=== PATIENT | female | born 1960 | race Caucasian/White ===

== ENCOUNTER 2019-07-30 03:32 | Outpatient (RCR) | payer BC, SELFPAY ==
[2019-07-23 16:06] LABS: Alanine Aminotransferase 128 U/L (4-35); Albumin Level 3.9 g/dL (3.5-5.1); Aspartate Amino Transferase 218 U/L (14-36); Bilirubin,Total 7.4 mg/dL (0.2-1.3); Blood Urea Nitrogen 13 mg/dL (7-17); Calcium 9.4 mg/dL (8.4-10.2); Carbon Dioxide 27 mmol/L (22-30); Chloride 102 mmol/L (98-107); Estimated Glomerular Filt Rate > 60; Glucose 98 mg/dL (65-105); Potassium 3.7 mmol/L (3.4-5.0); Sodium 140 mmol/L (137-145)
[2019-07-23 16:33] LABS: Alkaline Phosphatase 2064 U/L (38-126)
[2019-07-30 16:52] LABS: Alanine Aminotransferase 137 U/L (4-35); Albumin Level 3.5 g/dL (3.5-5.1); Aspartate Amino Transferase 214 U/L (14-36); Bilirubin,Total 6.9 mg/dL (0.2-1.3); Blood Urea Nitrogen 13 mg/dL (7-17); Calcium 9.4 mg/dL (8.4-10.2); Carbon Dioxide 23 mmol/L (22-30); Chloride 103 mmol/L (98-107); Estimated Glomerular Filt Rate > 60; Glucose 133 mg/dL (65-105); Potassium 3.5 mmol/L (3.4-5.0); Sodium 138 mmol/L (137-145)
[2019-07-30 17:21] LABS: Alkaline Phosphatase 1799 U/L (38-126)
== END 2019-10-21 23:59 | disposition home or self-care (01) ==
LOC: ANHLAB 03:32
PROVIDERS: PCP Family Medicine; Visit Provider Internal Medicine Medical Oncology
DX: C18.2 Malignant neoplasm of ascending colon (principal)
CPT/HCPCS: 36415; 80053

== ENCOUNTER 2020-01-29 09:34 | Emergency (ER) | payer BC, SELFPAY ==
[2020-01-29] VITALS (9 sets, daily range): BP systolic 63–107; BP diastolic 30–67; PULSE 81–105; RESP 16–30; TEMP 35.5–36.5; O2SAT 92–100
--- NOTE | ~2020-01-29 | XR_ITS ---
EXAMINATION: XR chest ET placement DATE: 01/29/2020 11:16 INDICATION: Hypotension. Endotracheal tube repositioning. TECHNIQUE: frontal view of the chest was obtained. COMPARISON: Chest radiograph dated 01/29/2020 at 10:04 AM FINDINGS: Endotracheal tube has been withdrawn with distal tip tip now in the trachea approximately 2.5 cm abov e the scooter. Left subclavian central venous port catheter with distal tip at the high right atrium. Nasogastric tube tip in proximal side port in the body of the stomach. Likely biliary stent projectin g over the right upper quadrant. Defibrillator pads project over the right chest and left upper quadr ant of the abdomen. Small lung opacity projecting over the right upper lung zone. Linear opacities project over the left midlung zone. Hazy opacity in the left lower lung zone with blunting at the left costophrenic angle c onsistent with small left pleural effusion. The cardiomediastinal silhouette is normal. IMPRESSION: 1. Endotracheal tube in acceptable position 2.5 cm above the scooter. 2. Small left pleural effusion. 3. Opacities in the right upper, left mid and lower lung zones which could represent atelectasis and/ or pneumonia. Reviewed, dictated and finalized at location [facility]. IMPRESSION: 1. Endotracheal tube in acceptable position 2.5 cm above the scooter. 2. Small left pleural effusion. 3. Opacities in the right upper, left mid and lower lung zones which could repr esent atelectasis and/or pneumonia.
--- NOTE | ~2020-01-29 | XR_ITS ---
EXAMINATION: XR chest ET placement, XR chest ET placement DATE: 01/29/2020 at 9:57 AM and 10:04 AM INDICATION: Unresponsive. Endotracheal tube placement and subsequent repositioning. TECHNIQUE: 1. Frontal view of the chest was obtained. 2. A second frontal view of the chest was obtained following endotracheal tube repositioning. COMPARISON: Chest radiograph dated 03/28/2015 FINDINGS: Endotracheal tube tip is positioned in the right mainstem bronchus approximately 2.5 cm below the lev el of the scooter on the initial radiograph. On the subsequent radiograph the tube is been withdrawn b ut is still just within the orifice of the right mainstem bronchus within a few millimeter of the car ulises. Left subclavian central venous port catheter with distal tip at the high right atrium. Nasogastr ic tube in the stomach. Defibrillator pads project over the right hemithorax and left upper quadrant. Likely biliary stent projecting over the right upper quadrant. There are airspace opacities in the right upper lung zone and in the left upper, mid and lower lung z ones. Blunting at the left costophrenic angle consistent with small left pleural effusion. No pneumot horax. Heart size is normal. IMPRESSION: 1. Endotracheal tube tip in the right mainstem bronchus, also on the second image post repositioning. Recommend withdrawal by 1.5-2 cm. 2. Opacities in the right upper and left upper, mid and lower lung zones which could represent atelec tasis, pneumonia, metastatic disease or some combination thereof. 3. Small left pleural effusion. Reviewed, dictated and finalized at location A. IMPRESSION: 1. Endotracheal tube tip in the right mainstem bronchus, also on the second bradley ge post repositioning. Recommend withdrawal by 1.5-2 cm. 2. Opacities in the right upper and left upper, mid and lower lung zones which could represent atelectasis, pneumonia, metastatic disease or some combination thereof. 3. Small left pleural effusion.
--- NOTE | ~2020-01-29 | CT_ITS ---
EXAMINATION: CT brain wo con DATE: 01/29/2020 10:22 INDICATION: Unresponsive. Intubated patient. TECHNIQUE: Computed tomography (CT) of the head was performed without intravenous contrast. The mA wa s adjusted according to patient size. Iterative reconstruction technique was employed. Exam dose: 68 1.00 mGy-cm total exam DLP. COMPARISON: None FINDINGS: The examination is limited due to patient motion and associated motion streak artifact. No intracranial mass lesion or hemorrhage or cerebrovascular accident is evident. There is evidence o f a focal left posteromedial cerebellar infarct. No midline shift or mass effect. No subdural or epidural hematoma. No skull fracture or bone destruction is detected. Included paranasal sinuses are unremarkable. No si gnificant abnormality of the mastoid air cells. NG and ET tubes. IMPRESSION: Limited examination due to motion artifact; no acute intracranial finding evident Reviewed, dictated and finalized at [facility]. Reviewed, dictated and finalized at location A.
[2020-01-29] MEDS: ETOMIDATE 20 MG/10 ML AMPUL 15 MG IV PUSH (09:40)
[2020-01-29] MEDS: SUCCINYLCHOLINE CHLORIDE 20 MG/ML 10 ML VIAL 150 MG IV PUSH (09:40)
--- NOTE | 2020-01-29 09:51 | ECG_ITS ---
Measurements Intervals [place] Rate: 100 P: 27 ID: [id number] QRS: 44 QRSD: 105 T: -30 QT: 338 QTc: 437 Interpretive Statements SINUS TACHYCARDIA BORDERLINE R WAVE PROGRESSION, ANTERIOR LEADS BORDERLINE ST-T WAVE ABNORMALITY- INF/LAT LEADS BASELINE WANDER- II, III, AVR, AVL, AVF ABNORMAL ECG Electronically Signed On 01-29-2020 10:55:54 CDT by Jaziel Watkins D.O.
[2020-01-29 09:58] LABS: Basophils Absolute Auto 0.01 K/mm3 (0.00-0.10); Basophils Percent Auto 0.1 % (0.0-1.0); Eosinophils Absolute Auto 0.01 K/mm3 (0.02-0.50); Eosinophils Percent Auto 0.1 % (1.0-6.0); Immature Granulocyte Absolute 0.16 K/mm3 (0.00-0.00); Immature Granulocyte Percent A 1.1 % (0.0-0.0); Lymphocytes Absolute Auto 1.49 K/mm3 (1.10-4.50); Lymphocytes Percent Auto 9.8 % (18.0-42.0); Mean Corpuscular HGB Conc 30.6 g/dL (32.0-36.0); Mean Corpuscular Hemoglobin 25.1 pg (27.0-31.0); Mean Corpuscular Volume 82.1 fL (78.0-102.0); Mean Platelet Volume 10.4 fl (9.2-11.8); Monocytes Absolute Auto 1.21 K/mm3 (0.10-0.90); Monocytes Percent Auto 7.9 % (2.0-11.0); Neutrophils Absolute Auto 12.4 K/mm3 (1.7-7.2); Nucleated Red Blood Cells Absolute Auto 0.04 K/mm3 (0.00-0.00); Nucleated Red Blood Cells Perc 0.3 % (0-0.0); Platelet Count Result 338 K/mm3 (150-420); Red Blood Count 1.95 M/mm3 (4.20-5.40); Red Cell Distribution Width 18.1 % (11.6-14.4); White Blood Count 15.2 K/mm3 (4.8-10.8)
--- NOTE | 2020-01-29 10:04 | ED.AMS ---
HPI - Altered Mental Status General Chief Complaint: Cardiac Arrest/CPR Stated Complaint: unresponsive Source: EMS Mode of arrival: ambulatory History of Present Illness HPI narrative: 59 y.o. with Stage 4 colon cancer, s/p bowel resection and course of chemotherapy. Seen by Dr. Becky Chin 2 months ago. Imaging then showed liver metastasis. Pt. declined starting chemo until after Covid situation improved. Pt. is full code. states she had been working up until a few days ago when she became very weak. Pt. found unresponsive at approximately 9:10 AM. states he started CPR. Paramedics report BP systolic 90, apnea, arrived [id number] ventilation with pulse of 100%. Pt. unresponsive to painful stimulus, eyes deviated to the right. Related Data Home Medications Medication Instructions Recorded Confirmed promethazine 25 mg tablet 25 mg PO Q6H PRN 01/15/20 01/29/20 Allergies Allergy/AdvReac Type Severity Reaction Status Date / Time No Known Allergies Allergy Verified 01/15/20 11:07 Review of Systems Review of Systems: ROS unobtainable: Yes unobtainable due to endotracheal tube PMFSH Past Medical History Medical History (Updated 01/30/20 @ 00:00 by Background Daemon) Colon cancer metastasized to multiple sites Surgical History Surgical History (Updated 01/29/20 @ 12:18 by Alvarez Cadena MD) S/P colectomy Family History Family History (Updated 07/28/18 @ 15:45 by DOCTOR UNKNOWN) Father Family history of premature coronary heart disease Family history of cardiovascular disease Acute myocardial infarction Sibling Family history of malignant neoplasm Social History Social History Smoking status: Former smoker Smoking end date: 09/12/14 Alcohol intake: never Exam Const: Other: unresponsive, bvm ventilation. Icteric Eyes: Other: eye deviation to left, bilateral pupils reactive, 3 mm Chest: Chest palpation & inspection: normal inspection of the chest Resp: Other: breath sounds equal both anterior lung romano. Shallow respirations on arrival, pulse ox in the 90s on non-rebreather. Cardio: Rhythm: regular rhythm GI: Other: abdomen is distended Skin: Other: icteric Neuro: Other: unresponsive. GCs = 33. Extrem: General: no pedal edema Course Course Emergency Course: Discussed transfusion of type specific blood with lab at 10:15. Anemia = hgb 4.9. Transfusing the only bag of 0- blood. INR >18.7 - will send FFP with patient to infuse in route Coffee ground g.i. fluid - protonix 80 mg 10 AM vent setting: Vt = 300, RR = 2 0, fi02 = 100%, PEEP = 6 10:25 AM vent settings: FiO2 = 50%, RR = 12. Hypotensive - systolic 60. 2nd IO placed, also have port. IV N.S. infusing, norepi drip. CXR - tube right mainstem bronchus, pulled back. 11:[address] Jenkins who is aware of DIC/hypotension/ GI bleed/alkalosis/hypokalemia. KCL increased form 10 meq/hr to 20 meq/hr. Departure at 11:42 AM. FFP sent with patient. BP 108 systolic, norepinephrine drip at 10 mcg/min. Discussed case with , Gamaliel, who is aware the patient is in critical condition and may not make it. He will contact a support person. O negative blood 1 unit only available for transfusion. Consultations Consultation #1: Discusssed with , full stack java developer at [facility]. Accepts pt. in transfer. I will contact him when lab, chest and CT results are available. Date: 01/29/20 Time: 09:48 Consultation #2: Dr. Jenkins appraised of situation. See course above. Date: 01/29/20 Time: 11:25 Vital Signs Vital signs: Vital Signs Temperature 35.5 C L 01/29/20 09:35 Pulse Rate 105 H 01/29/20 09:35 Respiratory Rate 30 H 01/29/20 09:35 Blood Pressure 106/67 01/29/20 09:35 Pulse Oximetry 92 01/29/20 09:35 Temperature 36.5 C 01/29/20 11:43 Pulse Rate 81 01/29/20 11:43 Respiratory Rate 16 01/29/20 11:43 Blood Pressure 107/62 01/29/20 11:43 Pulse Oxim
--- NOTE | 2020-01-29 10:05 | PC.NURSE ---
At 1000 erp on phone with spouse. pt last seen normal was 6pm yesterday.
--- NOTE | 2020-01-29 10:06 | PC.NURSE ---
[facility] transfer coordination contacted. recommended CT before oil pipe inspector will return call.
--- NOTE | 2020-01-29 10:08 | PC.NURSE ---
spouse contacted via phone and updated on pt status. spouse confirmed full-code status.
[2020-01-29 10:10] LABS: Alveolar/Arterial O2 Gradient 448.6 mmHg; Base Excess ABG 6.2 mmol/L (0-2); Fractional Inspired Oxygen 100 %; HCO3 ABG 28.6 mmol/L (23-29); Oxygen Content ABG 7.8 %vol (16.0-22.0); Oxyhemoglobin 98.3 % (94-100); PCO2 ABG 30.5 mmHg (35-45); PO2 ABG 233.9 mmHg (80-90); PO2 FiO2 Ratio Arterial Blood 2.34 %; Total Hemoglobin 5.2 g/dL; pH ABG 7.59 (7.35-7.45)
--- NOTE | 2020-01-29 10:10 | PC.NURSE ---
erp on phone with visual developer, Dr. Jenkins
[2020-01-29 10:12] LABS: Hemoglobin 4.9 g/dL (12.0-15.0)
[2020-01-29 10:12] LABS: Modified Allen's Test Pass; Site Drawn RIGHT RADIAL
[2020-01-29 10:13] LABS: Device HIGH FLOW NASAL CANN
[2020-01-29 10:20] LABS: Lactic Acid 7.2 mmol/L (0.4-2.0)
--- NOTE | 2020-01-29 10:21 | PC.NURSE ---
[facility] contacted and declined flight due to weather
--- NOTE | 2020-01-29 10:28 | PC.NURSE ---
Pt. returned from CT, ERP spoke c [facility] postal clerk for transfer.
[2020-01-29 10:29] LABS: Alanine Aminotransferase 104 U/L (14-59); Anion Gap 15.8 mmol/L (7-16); Aspartate Amino Transferase 301 U/L (15-37); Blood Urea Nitrogen 37 mg/dL (7-18); Calcium 6.6 mg/dL (8.5-10.1); Carbon Dioxide 31 mmol/L (21-32); Chloride 98 mmol/L (98-108); Estimated CRCL calculation 28 ml/min; Estimated Glomerular Filt Rate 36; Glucose 127 mg/dL (70-99); Magnesium 1.3 mg/dL (1.8-2.4); Osmolality Calculated 306 mOsm/kg (285-295); Sodium 143 mmol/L (136-145); Total Protein 4.1 g/dL (6.4-8.2)
--- NOTE | 2020-01-29 10:29 | PC.NURSE ---
Pre intubation meds given as per order, at 0939 Fentanyl 50 mcg IV, 0940 Succs 150 mg IV and Etomidate 15 mg. See code sheet.
--- NOTE | 2020-01-29 10:29 | PC.NURSE ---
[facility] unavailable to transport pt at this time.
--- NOTE | 2020-01-29 10:31 | PC.NURSE ---
[facility] paged to transport pt...en route.
[2020-01-29] MEDS: SODIUM CHLORIDE 0.9% IV 1,000 ML 999 ML IV CONT (10:40)
[2020-01-29] MEDS: KCL 40 MEQ/0.9% SOD CHL 1,000 ML 250 ML IV CONT (10:43)
[2020-01-29 10:45] LABS: INR > 18.7
[2020-01-29 10:45] LABS: Alkaline Phosphatase > 1000 U/L (46-116); Bilirubin,Total 13.3 mg/dL (0.00-1.00); Potassium 1.8 mmol/L (3.5-5.1); Troponin I < 0.02 ng/mL (0.00-0.056)
[2020-01-29] MEDS: PANTOPRAZOLE SODIUM IV 40 MG VIAL 80 MG IV PUSH (10:48)
[2020-01-29 10:49] LABS: Alveolar/Arterial O2 Gradient 161.9 mmHg; Base Excess ABG 6.3 mmol/L (0-2); Fractional Inspired Oxygen 50 %; HCO3 ABG 29.5 mmol/L (23-29); Oxygen Content ABG 6.2 %vol (16.0-22.0); Oxygen Saturation ABG 99.4 % (95-97); Oxyhemoglobin 97.7 % (94-100); PCO2 ABG 34.9 mmHg (35-45); PO2 ABG 155.3 mmHg (80-90); PO2 FiO2 Ratio Arterial Blood 3.11 %; pH ABG 7.55 (7.35-7.45)
[2020-01-29 10:50] LABS: Device HIGH FLOW NASAL CANN; Modified Allen's Test Pass; Site Drawn RIGHT RADIAL; Total Hemoglobin 4.2 g/dL
[2020-01-29] MEDS: NOREPINEPHRINE 8 MG/D5W 250 ML 8 MG/250 ML BAG 9.38 MG IV CONT (11:10)
--- NOTE | 2020-01-29 11:18 | PC.NURSE ---
erp on phone with dr mcdaniel at [facility]. [facility]as at bedside. transfer nurse at bedside.
--- NOTE | 2020-01-29 11:29 | NBADM ---
This patient Rosie Norris was born on at 09:34. Apgars / .
--- NOTE | 2020-01-29 11:29 | PCDIET ---
erp on phone with pt spouse, Mick Norris.
--- NOTE | 2020-01-29 11:44 | PC.NURSE ---
Pt transferred c blood infusing and FFP taken on pt.transfer. Reports given to [facility] for transfer. CHRISTEN Tiwari. going on transfer c Resp. therapist as well. Pts. VSS noted stabalizing at time of d/c.
== END 2020-01-29 11:45 | disposition short-term general hospital (02) ==
PROVIDERS: Emergency Provider Family Medicine
DX: I63.9 Cerebral infarction, unspecified (principal); R57.9 Shock, unspecified; D65 Disseminated intravascular coagulation [defibrination syndrome]; E87.6 Hypokalemia; D64.9 Anemia, unspecified
CPT/HCPCS: 31500; 36415; 36430; 36600; 70450; 80053; 82550; 82553; 82805; 83605; 83735; 84484; 85025; 85610; 85730; 86850; 86900; 86901; 86920; 93005; 96365; 96375; 99291; C9113; J0330; J3010; J7030; J7040; P9016; P9017